=== PATIENT | female | born 1995 | race African-American/Black ===

== ENCOUNTER 2025-06-03 18:38 | Observation (INO) | payer OTHER ==
[2025-06-03] MEDS ORDERED: Ondansetron PF 4 MG/2 ML Vial IVP PRN (18:48)
[2025-06-03] MEDS ORDERED: hydrALAZINE 20 MG/ML VIAL SLOW IVP PRN ×2 (18:48→18:55)
[2025-06-03] MEDS ORDERED: Acetaminophen 500 MG TAB PO PRN (18:48)
[2025-06-03 19:24] VITALS: BMI 31.8
[2025-06-03 20:05] LABS: Protein, Urine Random Quant 26.0 mg/dL (1-14)
[2025-06-03] MEDS: NIFEdipine XL 30 MG ER.TAB PO SCH (20:26)
[2025-06-03 20:27] VITALS: BP 173/103
[2025-06-03 20:37] LABS: #Basophils 0.03 10x3/uL (0.0-0.2); #Eosinophils 0.22 10x3/uL (0.0-0.5); #Monocytes 0.28 10x3/uL (0.0-1.1); #Neutrophils 3.09 10x3/uL (1.5-8.4); %Basophils 0.6 % (0.0-2.0); %Eosinophils 4.2 % (0.0-6.0); %Lymphocytes 30.3 % (18.0-47.0); %Monocytes 5.4 % (0.0-10.0); %Neutrophils 59.1 % (40.0-75.0); Hematocrit 33.0 % (34.9-44.5); Hemoglobin 10.9 g/dL (12.0-15.5); Mean Corpuscular Hemoglobin 27.3 pg (27.0-33.0); Mean Corpuscular Volume 82.7 fL (81.6-98.3); Platelet Count 291 10x3/uL (150-450); Red Blood Cell (RBC) Count 3.99 10x6/uL (3.90-5.03); White Blood Cell (WBC) Count 5.22 10x3/uL (3.5-10.5)
[2025-06-03 20:42] LABS: ALT (SGPT) 16 U/L (Less than 34); AST (SGOT) 22 U/L (11-34); Albumin 3.2 g/dL (3.1-4.5); Alkaline Phosphatase 116 U/L (40-110); Anion Gap 13 mmol/L (10-20); BUN (Urea Nitrogen) 9 mg/dL (7.0-18.7); Bilirubin, Total 0.1 mg/dL (0.3-1.2); Calc. Creatinine Clearance 162 mL/min (70-130); Calcium 8.7 mg/dL (7.8-10.44); Carbon Dioxide 22 mmol/L (22-29); Chloride 104 mmol/L (98-107); Globulin 3.5 g/dL (2.4-3.5); Glucose 107 mg/dL (70-105); Potassium 3.7 mmol/L (3.5-5.1); Sodium 135 mmol/L (136-145)
== END 2025-06-04 02:50 | disposition short-term general hospital (02) ==
LOC: CSHLD/OP 18:38 → CSHLD 19:22 → INTOOBSV 19:22
PROVIDERS: ADMIT Family Medicine; ATTEND Family Medicine
DX: O11.2 Pre-existing hypertension with pre-eclampsia, second trimester (principal); O10.912 Unspecified pre-existing hypertension complicating pregnancy, second trimester; O99.212 Obesity complicating pregnancy, second trimester; E66.9 Obesity, unspecified; O98.312 Other infections with a predominantly sexual mode of transmission complicating pregnancy, second trimester; A60.04 Herpesviral vulvovaginitis; Z3A.26 26 weeks gestation of pregnancy
CPT/HCPCS: 80053; 82570; 84156; 85025; J0702; J7120